=== PATIENT | female | born 1965 | race Two or more races ===

== ENCOUNTER 2021-08-31 11:02 | Emergency (ER) | payer OTHER ==
[~2021-08-31] VITALS: Ht 147.3 cm; Wt 59.0 kg
[2021-08-31] MEDS ORDERED: NEURONTIN600 M1 PO (11:24)
[2021-08-31] MEDS ORDERED: SIMVASTATIN5 MG (11:24)
[2021-08-31] MEDS ORDERED: LISINOPRIL20 MG PO (11:24)
[2021-08-31] MEDS ORDERED: XOPENEX0.63 MG/3 IH (11:24)
== END 2021-08-31 17:26 | disposition home or self-care (01) ==
LOC: ER 11:02
DX: U07.1 COVID-19 (principal); E86.0 Dehydration

== ENCOUNTER 2023-08-30 07:00 | Emergency (ER) | payer OTHER ==
[~2023-08-30] VITALS: Ht 147.3 cm; Wt 57.2 kg
[~2023-08-30 07:00] MED LIST: LISINOPRIL20 MG PO; NEURONTIN600 M1 PO; SIMVASTATIN5 MG; XOPENEX0.63 MG/3 IH
[2023-08-30] MEDS ORDERED: MONTELUKAST SODI4 M1 (07:21)
[2023-08-30] MEDS ORDERED: ADULT LOW DOSE81 M1 PO (07:21)
[2023-08-30] MEDS ORDERED: KETOROLAC TROMETHAMINE 15 MG VIAL IM STA (08:18)
[2023-08-30] MEDS ORDERED: KETOROLAC TROMETHAMINE 30 MG VIAL ONE (08:30)
[2023-08-30 08:33] LABS: HEMATOCRIT 39.8 % (36.0-45.00); HEMOGLOBIN 13.5 g/dL (12.0-15.00); MEAN CORPUSCULAR HEMOGLOBIN 28.4 pg (27.00-32.0); MEAN CORPUSCULAR HGB CONC 33.8 g/dl (32.0-36.0); PLATELET COUNT 383 K/uL (150-450); RED BLOOD COUNT 4.73 M/uL (4.00-6.00); RED CELL DISTRIBUTION WIDTH 13.9 % (11.5-14.5)
[2023-08-30] MEDS ORDERED: NASAL MIST126 ML NASAL (09:43)
[2023-08-30] MEDS ORDERED: OSEL75CA PO (09:43)
[2023-08-30] MEDS ORDERED: HYOSCYAMINE SULFATE 0.125 MG TAB.SUBL SL STA (09:52)
[2023-08-30] MEDS ORDERED: HYOSCYAMINE SULFATE 0.125 MG TAB.SUBL ONE (09:53)
== END 2023-08-30 09:49 | disposition home or self-care (01) ==
LOC: ER 07:00
PROVIDERS: Emergency Medicine
DX: U07.1 COVID-19 (principal); J10.1 Influenza due to other identified influenza virus with other respiratory manifestations; E11.9 Type 2 diabetes mellitus without complications; Z79.84 Long term (current) use of oral hypoglycemic drugs; I10 Essential (primary) hypertension; Z88.8 Allergy status to other drugs, medicaments and biological substances; Z87.09 Personal history of other diseases of the respiratory system